=== PATIENT | male | born 1945 | race Hispanic/Latino ===

== ENCOUNTER 2016-08-09 11:42 | Emergency (ER) | payer OTHER ==
[~2016-08-09] VITALS: Ht 162.6 cm; Wt 59.0 kg
[~2016-08-09 11:42] MED LIST: ASPIR 8181 M1 PO; ASPIR-LOW81 M1 PO; CIPRO500 MG PO; LEVAQUIN750 MG PO; MIRALAX255 GM PO; PRINIVIL20 MG PO; PYRIDIUM100 MG PO; TRAMADOL HCL50 MG PO; UNKNOWN BP MED; ZESTRIL,PRINIVI40 M1 PO; [UNRECOGNIZED DRUG - REMARK]
[2016-08-09 12:34] LABS: ADD MIUA? YES; BILIRUBIN NEGATIVE; BLOOD SMALL; GLUCOSE (STRIP) NEGATIVE; KETONES NEGATIVE; LEUKOCYTES SMALL; NITRITE NEGATIVE; PH, URINE 6.5 (5-8); PROTEIN (STRIP) NEGATIVE; SPECIFIC GRAVITY 1.008 (1.000-1.030); UROBILINOGEN 0.2 MG/DL (0.2-1.0)
[2016-08-09 12:35] LABS: COLOR LT YELLOW ((YELLOW))
[2016-08-09 12:53] LABS: BACTERIA NONE SEEN; CASTS NONE SEEN /LPF; CRYSTALS NONE SEEN; EPITHELIAL CELLS RARE; MUCUS NONE SEEN; PATHOLOGICAL CAST NONE SEEN; RED BLOOD CELLS 0-5 /HPF (0-5); SMALL ROUND CELL NONE SEEN; UCUL ADDED? NO; WHITE BLOOD CELLS 0-5 /HPF (0-5); YEAST-LIKE CELL NONE SEEN
[2016-08-09] MEDS ORDERED: CIPRO500 MG PO (15:19)
[2016-08-09 15:46] VITALS: BP 163/90
== END 2016-08-09 15:46 | disposition home or self-care (01) ==
LOC: EME 11:42
DX: R30.0 Dysuria (principal); N50.82 Scrotal pain; R35.0 Frequency of micturition; Z79.82 Long term (current) use of aspirin; F17.200 Nicotine dependence, unspecified, uncomplicated
CPT/HCPCS: 76870; 81003; 87086; 99281; 99284